=== PATIENT | female | born 1955 | race Caucasian/White ===

== ENCOUNTER 2016-08-31 08:56 | Observation (INO) | payer BC ==
--- NOTE | ~2016-08-31 | DS ---
Discharge Summary [facility] [address] [place]. [address] NAME: ALICIA GARCIA : 57 STATUS : DIS Chadd PAT#: [id number] AGE: 61 ADM/REG DATE : 08/31/16 MR#: [id number] REPORT SERV DATE: 09/02/16 DICTATED BY: JR. BENSON WILLIAM JOHN DATE: 09/01/16 REPORT STATUS : Draft TRANSCRIBED BY: NANETTE DATE: 09/01/16 ADMISSION DATE: 08/31/2016 DISCHARGE DATE: 09/01/2016 DISCHARGE DIAGNOSES: Include: 1. Hallucinations due to benzodiazepine withdrawal. 2. Benzodiazepine withdrawal. 3. Chronic neuropathy with diabetes mellitus type 2. 4. Hypertension. 5. History of mitral valve prolapse. OPERATIONS, PROCEDURES, AND TREATMENTS: Include PA and lateral chest x-ray done 08/31 which showed no acute process. DISCHARGE MEDICATIONS: Include: 1. Norvasc 10 mg orally daily. 2. Neurontin 800 mg orally four times a day. 3. Synthroid 25 mcg orally daily. 4. Clonidine 0.1 mg orally daily. 5. Losartan/hydrochlorothiazide 100/12.5, one tablet orally daily. 6. Melatonin 10 mg orally at bedtime. 7. Metoprolol succinate 100 mg orally daily. 8. Nicotine patch 21 mg strength. 9. Prilosec 40 mg orally daily. 10.Zoloft 100 mg orally daily. 11.Metformin 1000 mg orally daily. 12.Zanaflex 4 mg orally at bedtime. 13.Xanax 1 mg orally at bedtime, dispensing 7. 14.ProAir 2 puffs as needed. 15.Clementon 7.5/325 one tablet every six hours as needed. 16.Probiotic 1 tablet orally daily. HOSPITAL COURSE: The patient is a 61-year-old white female, chronically on Xanax, who presented to the emergency room with visual and auditory hallucinations which were nonthreatening. She apparently took too many of her Xanax and was out until September 16. She had been out of them for the last 3-5 days. For full details of the admission history, physical, and presenting data, please see Dr. Kirk's excellent dictated history and physical. The patient's records were reviewed. She had a hospital stay in March 2016, at which time, it was noted she had confusion, somnolence, respiratory failure, and polypharmacy. I discussed the perils of polypharmacy with the patient. She seems resistant but is willing to try to reduce her medication regimen. The patient was given benzodiazepines for hallucinations resolved. She is discharged home. She was on 1 mg of Xanax in the evening and 0.5 in the morning. I have written for 1 mg for Discharge Summary [address] [place] [address] NAME: ALICIA GARCIA : 57 STATUS : DIS Chadd PAT#: [id number] AGE: 61 ADM/REG DATE : 08/31/16 MR#: [id number] REPORT SERV DATE: 09/02/16 DICTATED BY: JR. BENSON WILLIAM JOHN DATE: 09/01/16 REPORT STATUS : Draft TRANSCRIBED BY: NANETTE DATE: 09/01/16 bedtime with a 7-day supply. The patient will need to follow up with Dr. Valdes in the next 7 days for refill of medication. DISCHARGE DIET: ADA diet. ACTIVITY: As tolerated. For discharge exam and laboratory, please see daily progress note. WJF/NANETTE Ramakrishna Benson Jr, MD / [id number] CC: Ramakrishna Benson Jr, MD Maria Tomczyk, MD
--- NOTE | ~2016-08-31 | HP ---
History And Physical [facility] [address] [place]. [address] NAME: ALICIA GARCIA : 57 STATUS : ADM Chadd PAT#: [id number] AGE: 61 ADM/REG DATE : 08/31/16 MR#: [id number] REPORT SERV DATE: 08/31/16 DICTATED BY: VICKIE LR DATE: 08/31/16 REPORT STATUS : Draft TRANSCRIBED BY: NANETTE DATE: 08/31/16 DATE OF ADMISSION: 08/31/2016 REASON FOR ADMISSION: Hallucination secondary to Xanax abstinence. HISTORY: This is a 61-year-old white female who is on Xanax chronically. She cannot remember when she started these, nor for the reason she is on them except that she does have anxiety periodically. She gets some from Dr. Lazaro in [place]. Dr. Lazaro will not refill these until 09/16. She has been out of them for at least the last three days. She initially told me four to five days. She does not know why she is out of them and she guesses that she may have taken too many of them. She also sees Pain Management, has recent changes in her pain management doctors and the medication that she was taking from Pain Management. She complains about pain as neuropathic in her feet and legs. She is still getting narcotic medication for this pain. She does have adult onset diabetes mellitus. Blood sugars run in the 150 range at home, she says. She lives in [place]. PAST MEDICAL HISTORY: Her home medications include the following: Albuterol two puffs p.r.n., Xanax 0.5 mg daily p.r.n. anxiety and 1 mg p.o. at bedtime, amlodipine 10 mg p.o. daily, clonidine 0.1 mg p.o. daily, gabapentin 800 mg 4 times a day, hydrocodone 7.5/325 one p.o. q.6 hours p.r.n. pain, levothyroxine 25 mcg p.o. daily, Hyzaar 100/12.5 one p.o. daily, melatonin 5 mg p.o. at bedtime, metformin ER 1000 mg p.o. at bedtime, Metoprolol-XL 100 mg p.o. daily for her mitral valve prolapse. She stopped taking the nicotine patch the last couple of days. She did smoke earlier this morning. Omeprazole 40 mg p.o. daily, sertraline 100 mg p.o. b.i.d., Zanaflex 4 mg at bedtime, and probiotic one a day. ALLERGIES: PENICILLIN, ADHESIVES, CODEINE, AMITRIPTYLINE, AND NORTRIPTYLINE. SHE HAD A PRIOR HOSPITALIZATION WHERE SHE PRESENTED WITH POLYPHARMACY, CONFUSION, SOMNOLENCE, RESPIRATORY FAILURE, AND BILATERAL PNEUMONIA. SHE WAS DISCHARGED FROM THE HOSPITAL IN 03/2016 FROM THIS. SHE DOES HAVE A HISTORY OF COPD, MITRAL VALVE PROLAPSE DIAGNOSED BY DOCTOR IN [place] AND PLACED ON A BETA SAVI IN THE PAST. SHE HAS GERD SEEN BY DR. SAHARA GOMEZ. NEUROPATHY OF HER LOWER EXTREMITIES, HISTORY OF DEPRESSION, HYPERTENSION, AND CHRONIC PAIN MANAGEMENT. SHE HAD BILATERAL FOOT SURGERY IN SUMMER 2005 AND A MUMTAZ FUNDOPLICATION REMOTELY. SOCIAL HISTORY: She continues to smoke cigarettes about a pack a day. Does not take any alcohol. She lives with a son in [place], [place]. She has not ever been . She worked at a [employer] previously and her insurance is being adjusted. Her sister is here with her today. History And Physical [address] [place]. [address] NAME: ALICIA GARCIA : 57 STATUS : ADM Chadd PAT#: [id number] AGE: 61 ADM/REG DATE : 08/31/16 MR#: [id number] REPORT SERV DATE: 08/31/16 DICTATED BY: VICKIE LR DATE: 08/31/16 REPORT STATUS : Draft TRANSCRIBED BY: NANETTE DATE: 08/31/16 FAMILY HISTORY: Father heart disease. Mother had abdominal sepsis after bowel puncture and she when she was 75 years old. REVIEW OF SYSTEMS: She sees things that look like water falling and small dark crevices, hears people talking and seeing people that are not there. This caused her a big argument with her son over this and the son was very concerned, called his aunt, her sister, and had her transported here. She was seen by Haven, the nurse practitioner in the emergency room and could not figure out why she is having the hallucinations and asked for hospitalist physician assistance with this. She has had no swelling in lower extremities. No melena, hematemesis, fits, seizures, convulsions, unilateral weakness. No nausea, vomiting, or diarrhea. She is hungry, wants to eat, has not had her medicines this morning. Blood pressure is up. The remainder of the review of systems is negative. PHYSICAL EXAMINATION: GENERAL: White female, appropriate stated age, in no acute distress. VITAL SIGNS: Her blood pressure is 166/70 with a heart rate of 80, respiratory rate 16, afebrile. HEENT: EOMI. Sclerae are clear. Conjunctivae pink. NECK: No bruit without any JVD. CHEST: Clear to A and P. HEART: Regular S1, S2 without murmur, gallop, or click. ABDOMEN: Soft, nontender. Bowel sounds positive. No HSM. EXTREMITIES: Have no edema. DTRs equal and symmetric in the knees and ankles bilaterally. Coordination intact. She has no tremor. Sensory is grossly intact bilaterally. She walks without limp nor unilaterality. She does say she sees things behind the storage bins in the room and looks like things are raining when it gets dark. LABORATORY: Her urine drug screen showed opiates and she is on the hydrocodone. Her sodium 140, potassium 3.8, creatinine 0.89, BUN 12, glucose 123, acetaminophen less than 20, aspirin 7.6, alcohol less than 10. Her urinalysis shows specific gravity 1.013, pH negative dip, no white cells, no red cells. Chest x-ray is negative for acute disease. Her white count is 11.2, hemoglobin 13.3, hematocrit 37.9, platelet count 245. Chest x-ray is negative for any acute cardiopulmonary disease. ASSESSMENT: 1. Hallucinations, people talking voices and visually seeing people without seizures now, probably 3 days off the Xanax though she originally said 4 to 5. She can get these refilled on 09/[address] Lazaro. I am going to give her a Xanax now to see if this helps hallucinations antwan. We will put her on observation and continue the Xanax in tapering fashion, try to convert over to clonazepam, little longer-acting with potentially less abuse potential and let Dr. Lazaro consider dealing with the prescription on the . History And Physical [facility] [address] [place]. [address] NAME: ALICIA GARCIA : 57 STATUS : ADM Chadd PAT#: [id number] AGE: 61 ADM/REG DATE : 08/31/16 MR#: [id number] REPORT SERV DATE: 08/31/16 DICTATED BY: VICKIE LR DATE: 08/31/16 REPORT STATUS : Draft TRANSCRIBED BY: MODL DATE: 08/31/16 2. Xanax abstinence. 3. Chronic pain, feet, neuropathic type, probably would be better to continue to pursue increasing the Neurontin then increasing the narcotics. She was on morphine SR with Dr. Rowe in [place]. She recently changed to Dr. Mirza in [place] and is on the shorter acting Lortab 7.5 now. 4. Hypertension. We will start her home medications. 5. Diabetes type 2. Blood sugar is not elevated much. We will continue on the metformin. 6. History of mitral valve prolapse, seen by Dr. Dooley in [place], started on metoprolol many years ago. She has done well with this. 7. Limited understanding of medical problems. She disagrees with me this is the Xanax withdrawal. I told her we would give her Xanax and see if it returns back. She agreed she may have taken too many Xanax as she is out of them until [address] April Lazaro again. She does have an appointment with Dr. Lazaro today at 2:30 and wants to leave to go see her. However, she is still having the hallucinations. I am afraid she will be sent back. Therefore, we will reschedule the appointment with Dr. Lazaro to a future date, try to convert from Xanax to clonazepam to prevent hallucinations. DB/MODL Vickie Lr M.D. / [id number] CC: Ramakrishna Benson Jr, MD
[2016-08-31 08:50] LABS: BASOPHILS 0.2 %; BASOPHILS ABSOLUTE 0.02 10/3/uL (0.0-0.16); EOSINOPHILS 2.6 %; EOSINOPHILS ABSOLUTE 0.29 10/3/uL (0.0-0.53); ER CBC TAT 0 Hrs 05 Mins; IMMATURE GRANULOCYTES 0.3 %; IMMATURE GRANULOCYTES ABSOLUTE 0.03 10/3/uL (0.0-0.11); LYMPHOCYTES 20.8 %; LYMPHOCYTES ABSOLUTE 2.32 10/3/uL (0.67-4.30); MEAN CORPUS HGB CONC 35.1 g/dL (32.0-36.0); MEAN CORPUSCULAR HEMOGLOB 28.5 pg (26.0-34.0); MEAN CORPUSCULAR VOLUME 81.2 fL (80-100); MEAN PLATELET VOLUME 9.4 fL (9.2-13.0); MONOCYTES 6.5 %; MONOCYTES ABSOLUTE 0.72 10/3/uL (0.21-1.20); NEUTROPHILS 69.6 %; NEUTROPHILS ABSOLUTE 7.77 10/3/uL (2.02-8.40); RBC DISTRIBUTION WIDTH 15.3 % (12.0-16.0); WHITE BLOOD CELLS 11.2 10/3/uL (4.5-10.5)
[2016-08-31 08:51] LABS: HEMATOCRIT 37.9 % (36.0-48.0); HEMOGLOBIN 13.3 g/dL (12.0-16.0); MANUAL DIFF NO %; PLATELET COUNT 245 10/3/uL (150-400); RED CELL COUNT 4.67 10/6/uL (4.0-5.6)
[2016-08-31 08:52] LABS: ASCORBIC ACID (UR NOT ORDER) NEG (NEG); BILIRUBIN, URINE NEGATIVE (NEG); ER URINALYSIS TAT 0 Hrs 07 Mins; KETONE, URINE NEGATIVE (NEG); LEUKOCYTE ESTERASE(NOT OR NEG (NEG); NITRITE (URINE) NEG (NEG); WBC (NOT ORDERED) (RFLEX) 1 (0-5)
[~2016-08-31 08:56] MED LIST: *UNABLE1; AUG875 PO; CATPATCH1 TOP; HABIT21 TOP; HYZAAR 100/25 T1 TAB PO; MICRO-K10 MEQ PO; MSCONT15 PO; NEUR800 PO; NOR25 PO; NOR75 PO; NORCO1 TAB PO; NORV10 PO; P10 PO; PRILO PO; PROVHFA INH; SPIRIVA RESPIMAT INH; TOPXL100 PO; XANAX1 MG PO; ZANAFLEX 4 MG TA4 MG PO; ZOL100 PO
[2016-08-31 09:04] LABS: ALKALINE PHOSPHATASE 90 U/L (45-117); CHLORIDE, SERUM 104 MMOL/L (96-112); CO2 (CARBON DIOXIDE) 26 MMOL/L (24-34); CREATININE 0.89 MG/DL (0.55-1.02); GFR AFRICAN AMERICAN 82 ML/MIN (>=60); GFR NON AFRICAN AMERICAN 70 ML/MIN (>=60); GLUCOSE, SERUM 123 MG/DL (60-99); POTASSIUM, SERUM 3.8 MMOL/L (3.5-5.3); SALICYLATE 7.6 MG/DL (-); SGOT(AST) 18 U/L (5-40); SGPT(ALT) 15 U/L (5-65); SODIUM, SERUM 140 MMOL/L (135-148)
[2016-08-31 09:06] LABS: A/G RATIO 1.2 (0.7-1.9); ACETAMINOPHEN LEVEL (TYLENOL) < 2.0 MCG/ML (10.0-20.0); ALBUMIN 4.4 G/DL (3.5-5.0); ALCOHOL < 10 MG/DL (0); BUN (BLOOD UREA NITROGEN) 12 MG/DL (6-23); CALCIUM, SERUM 9.3 MG/DL (8.5-10.4); GLOBULIN 3.7 G/DL (2.5-4.1); TOTAL BILIRUBIN 0.3 MG/DL (0-1.2); TOTAL PROTEIN 8.1 G/DL (6.0-8.5)
[2016-08-31 09:28] LABS: AMPHETAMINES (NOT ORD) NEG (NEG); BARBITURATES (NOT ORDERED NEG (NEG); BENZODIAZEPINES (NOT ORD) NEG (NEG); CANNABINOIDS (THC) NEG (NEG); COCAINE (NOT ORDERED) NEG (NEG); OPIATES POS (NEG); PHENCYCLIDINE(PCP) NEG (NEG); TRICYCLICS NEG (NEG)
[2016-08-31] MEDS ORDERED: HABIT21 TOP (10:22)
[2016-08-31] MEDS ORDERED: CAT1 PO (10:23)
[2016-08-31] MEDS ORDERED: NORV10 PO (10:23)
[2016-08-31] MEDS ORDERED: PRILOSEC40 MG PO (10:23)
[2016-08-31] MEDS ORDERED: ZANAFLEX 4 MG TA4 MG PO (10:23)
[2016-08-31] MEDS ORDERED: XANAX1 MG PO (10:24)
[2016-08-31] MEDS ORDERED: X5 PO (10:25)
[2016-08-31] MEDS ORDERED: NEUR800 PO (10:25)
[2016-08-31] MEDS ORDERED: PROAIR HFA INH (10:25)
[2016-08-31] MEDS ORDERED: NORCO1 TA2 PO (10:25)
[2016-08-31] MEDS ORDERED: FORTAMET1000 MG PO (10:25)
[2016-08-31] MEDS ORDERED: TOPXL100 PO (10:26)
[2016-08-31] MEDS ORDERED: ZOL100 PO (10:26)
[2016-08-31] MEDS ORDERED: PROBIOTIC PO (10:26)
[2016-08-31] MEDS ORDERED: HYZAAR1 TAB PO (10:26)
[2016-08-31] MEDS ORDERED: LEVOTHYROXIN25 MCG PO (10:26)
[2016-08-31] MEDS ORDERED: MELATONIN5 M1 PO (10:27)
== END 2016-09-01 13:15 | disposition home or self-care (01) ==
LOC: ER 08:56 → CDU1 11:16 → CDU2 11:44
PROVIDERS: Physician Assistant
DX: R44.2 Other hallucinations (principal); F19.939 Other psychoactive substance use, unspecified with withdrawal, unspecified; E11.40 Type 2 diabetes mellitus with diabetic neuropathy, unspecified; I10 Essential (primary) hypertension; Z79.01 Long term (current) use of anticoagulants; Z79.899 Other long term (current) drug therapy; Z88.0 Allergy status to penicillin; Z88.5 Allergy status to narcotic agent; Z88.8 Allergy status to other drugs, medicaments and biological substances; F17.210 Nicotine dependence, cigarettes, uncomplicated
CPT/HCPCS: 71020; 80053; 80305; 80307; 81001; 82962; 85025; 96372; 99285; A9270-GY; G0378